=== PATIENT | female | born 1970 | race Caucasian/White ===

== ENCOUNTER 2016-10-28 14:48 | Emergency (ER) | payer BC ==
--- NOTE | 2016-10-28 15:27 | ERNOTE ---
<Sergio Jonas - Last Filed: 10/28/16 20:20> Abdominal HPI - Narrative Date of Service: 10/28/16 - General Chief Complaint: Abdominal Pain Time Seen by Provider: 10/28/16 15:24 Source: patient, family - S.O. Exam Limitations: no limitations - Immun/Allergies/Home Medications Allergies/Adverse Reactions: Allergies No Known Allergies Allergy (Unverified 10/28/16 15:07) Home Medications: HOME MEDICATIONS Ciprofloxacin HCl [Cipro] 500 mg PO BID #20 tab 10/28/16 [Last Taken Unknown] Levothyroxine Sodium [Synthroid] 125 mcg PO DAILY 10/28/16 [Last Taken Unknown] - History of Present Illness Narrative: PT C/O 6 MONTH OF INTERMITTENT ABD PAIN RADIATING TO LEFT SIDE AND HER BACK. SAYS SHE WAS RECENTLY AT [facility] AND DX'D WITH UTI FOR WHICH SHE WAS ON ANTIBIOTIC , DOES NOT KNOW THE NAME SHE STATES THAT THEY DID LAB WORK AND ULTRASOUND OF ABDOMEN AND HAVE FOUND NOTHING. SHE IS FROM [place] AND SEES A N.P. THERE BUT NEVER BEEN HERE BEFORE BUT HER BOYFRIEND LIVES HERE SO THEY DECIDED TOO COME HERE TODAY. SHE IS NOT ON ANY REGULAR MEDS BUT SAYS SHE TOOK IBUPROFEN TODAY AND HER BOYFRIEND GAVE HER ON OF HIS HYDROCODONE TODAY. RIGHT NOW SHE CAN NOT LOCALIZE THE PAIN AND SAYS IT IS NOT TOO BAD IT SEEMS TO "COME AND GO". NO HX OF FEVER, UTI SX. NO V OR D BUT SOMETIMES FEELS NAUSEOUS. SHE DENIES STATING SHE HAD BTL WITH HX OF G 4 P2. NO TRAUMA HX. Timing: intermittent Quality: sharpness Review of Systems - Review of Systems Constitutional: Present: See HPI Gastrointestinal/Abdominal: Present: See HPI, nausea, abdominal pain. Absent: vomiting, diarrhea, constipation, eating less, drinking less Genitourinary: Present: no symptoms reported All Other Systems: All systems neg except as marked - Patient's Past Medical History Patient History - Medical: Hypothyroidism Patient History - Cardiac/Respiratory: No pertinent hx Patient History - Cancer: No Hx of Cancer Patient History - Surgical Procedures: Tubal Ligation, Other Patient History - Other: None - Social History Living Situations: home Psych History: No pertinent hx ED Progress - Date and Time Seen: Date and Time: 10/28/16 18:21 STILL HAVE NOT RECEIVED ANY OF THE RECORDS WE REQUESTED FROM [facility]. RN RE- SSUBMITTED THE REQUEST A FEW MINS. AGO. - Results and Orders Patient's Lab Results:: I have reviewed the patient's lab results. Results and Orders: ALL THE LABS, CBC,CMP,LIPASE CRP , STSH, UA , UDS (EXCEPT FOR OPIATES THEY SAID SHE TOOK) ARE NEGATIVE. - Vital Signs Vital Signs: Vital Signs 10/28/16 10/28/16 15:00 15:13 Temperature 36.7 C Pulse Rate 71 72 Respiratory 12 16 Rate Blood Pressure 117/68 115/76 O2 Sat by Pulse 99 100 Oximetry - Progress/Reassessment Chief Complaint: Abdominal Pain - Transfer of Care Physician Sign Out: Sergio Jonas Receiving Physician: Halie Thao Pending Results: CT/MRI results Expected Disposition: Discharge Plan - Plan Plan: ALL THE LABS AND REVIEW OF W/U DONE IN [facility] HAS BEEN NEGATIVE EXCEPT FOR A UTI FOR WHICH SHE SAYS SHE WAS TREATED. SHE SAYS SHE IS HAVING A RECURRENCE OF ABD PAIN FROM EPIGASTRIC AROUND RIGHT SIDE TO HER BACK BUT ON EXAM THER IS TENDERNESS TO PALPATION. I EXPLAINED THE RESULTS TO DATE TO HERE AND HER BOYFREIND AND OFFERED TO TRY A CT OF ABD /PELVIS TO SEE IF THERE IS ANYTHING MISSED TO DATE. IIN THE MEANTIME I ORDERED TORADOL 30 MG IV THOUGH I CAN NOT REPRODUCE ANY PAIN. Departure - Departure Clinical Impression: Chronic abdominal pain, Pyelonephritis Disposition: Home self-care Condition: Stable Instructions: Pyelonephritis, Adult, [id number] Prescriptions: Ciprofloxacin HCl [Cipro] 500 mg PO BID #20 tab <Halie Thao - Last Filed: 10/28/16 20:57> ED Progress - Vital Signs Vital Signs: Vital Signs 10/28/16 10/28/16 10/28/16 15:00 15:13 15:37 Temperature 36.7 C Pulse Rate 71 72 60 Respiratory 12 16 14 Rate Blood Pressure 117/68 115/76 113/71 O2 Sat by Pulse 99 100 99 Oximetry 10/28/16 10/28/16 10/28/16 16:03 16:38 17:03 Temperature Pulse Rate 59 L 63 58 L Respiratory 12 12 Rate Blood Pressure 107/71 107/70 102/65 O2 Sat by Pulse 99 99 100 Oximetry 10/28/16 10/28/16 10/28/16 17:48 18:37 19:09 Temperature Pulse Rate 61 64 64 Respiratory 12 16 16 Rate Blood Pressure 102/63 104/66 108/60 O2 Sat by Pulse 100 99 98 Oximetry 10/28/16 20:25 Temperature Pulse Rate 63 Respiratory 16 Rate Blood Pressure 109/60 O2 Sat by Pulse 97 Oximetry Plan - Plan Plan: I received sign out from previous physician. pt has had some abd pain, recent dx of UTI, done with ABX however CT reveals findings consistent with pyelonephritis. will treat with Cipro and pt to follow up with PCP
--- OUTSIDE RECORDS SUMMARY | 2016-10-28 15:32 | XMS REPORT | Continuity of Care Document ---
:1970 Author Organization [facility] ([facility]) Address [address] [place] [address] Phone [phone] Care Team Providers Name Role Phone Alicia Kolb Primary Care Provider [phone] Source Comments This disclosure is being made pursuant to the Care Everywhere program, applicable federal and state laws, and may not contain all informaitonavailable regarding this patient.[facility] ([facility]) Active Allergies and Adverse Reactions Not on File Current Medications Not on file Active Problems Not on file Social History Tobacco Use Types Packs/Day Years Used Date Never Assessed Plan of Care Health Maintenance Due Date Last Done Comments Hepatitis B Vaccine (1 of 3 - Primary Series) 1970 Tdap Vaccine 09/28/1983 Lipid Disorder Screening 1990 MMR Vaccine 1990 Td Vaccine 1990 Cervical Cancer Screening 2002 Mammogram 2012 Influenza Vaccine: Seasonal (#1) 01/15/2016 Results from Last 3 Months Not on file
--- OUTSIDE RECORDS SUMMARY | 2016-10-28 15:33 | XMS REPORT | Summary of Care ---
:1970 Author Organization [facility] Address [address] [place] [address] Care Team Providers Name Role Phone Physician, Primary Care Primary Care Physician Unavailable Encounter Date(s): 08/01/16 - 08/01/16 [facility] [address], [place], [place] [address] Discharge Diagnosis: Influenzal acute upper respiratory infection Discharge Disposition: Discharged to Home or Self Care Attending Physician: MONICA Velez Referring Physician: MONICA Velez Vital Signs Most recent to oldest [Reference Range]: 1 Temperature Temporal Artery [36.0-38.0 DegC] 36.4 DegC (08/01/16 9:50 AM) Peripheral Pulse Rate [60-100 bpm] 87 bpm (08/01/16 9:50 AM) SpO2 [90-100 %] 99 % (08/01/16 9:50 AM) Blood Pressure [90-130/60-90 mmHg] 102/68mmHg (08/01/16 9:50 AM) Mean Arterial Pressure, Cuff 79 mmHg (08/01/16 9:50 AM) Most recent to oldest [Reference Range]: 1 Height/Length Measured 169 cm (08/01/16 9:50 AM) Weight Dosing 68.0 kg (08/01/16 9:50 AM) Weight Measured 68.0 kg (08/01/16 9:50 AM) BSA Measured 1.78 m2 (08/01/16 9:50 AM) Body Mass Index Measured 23.81 kg/m2 (08/01/16 9:50 AM) Problem List Condition Effective Dates Status Health Status Informant Graves disease(Confirmed) Active (Confirmed) < 1999 Resolved (Confirmed) < 05/09/01 Resolved (Confirmed) < 07/07/98 Resolved Allergies, Adverse Reactions, Alerts No Known Medication Allergies Medications acyclovir 800 mg oral tablet 1 tab(s), Oral, BID, X 5 days, # 20 tab(s), 2 Refill(s), Start Date: 03/08/15 13 :35:00 CDT, Pharmacy: [facility] Start Date: 03/08/15 Stop Date: 03/08/15 Status: Discontinuedacyclovir 800 mg oral tablet 1 tab(s), Oral, BID, X 5 days, # 20 tab(s), 2 Refill(s), Start Date: 03/08/15 13 :42:05 CDT, Pharmacy: [facility] Start Date: 03/08/15 Stop Date: 03/23/15 Status: Completedamoxicillin 500 mg oral capsule 1 cap(s), Oral, TID, X 10 days, # 30 cap(s), 0 Refill(s), Start Date: 09/23/14 15:09:00 CDT, Pharmacy: [facility] Start Date: 09/23/14 Stop Date: 10/03/14 Status: CompletedAprodine 2.5 mg-60 mg oral tablet 1 tab(s), Oral, QID, PRN for congestion, # 40 tab(s), 0 Refill(s), Start Date: 08/01/16 9:53:00 CREDIT DIRECTOR Start Date: 08/01/16 Status: Orderedazithromycin 500 mg oral tablet 1 tab(s), Oral, Daily, X 5 days, # 5 tab(s), 0 Refill(s), Start Date: 02/26/16 14:56:00 CDT, Pharmacy: [facility] Start Date: 02/26/16 Stop Date: 03/02/16 Status: CompletedFLUoxetine 10 mg oral tablet 1 tab(s), Oral, Daily, # 90 tab(s), 1 Refill(s), Start Date: 02/21/15 17:36:15 CDT, Pharmacy: [facility] Start Date: 02/21/15 Stop Date: 09/08/15 Status: CompletedFLUoxetine 10 mg oral tablet 1 tab(s), Oral, Daily, # 90 tab(s), 1 Refill(s), Start Date: 09/08/15 12:02:28 CDT, Pharmacy: [facility] Start Date: 09/08/15 Stop Date: 04/10/16 Status: CompletedFLUoxetine 10 mg oral tablet 1 tab(s), Oral, Daily, # 90 tab(s), 1 Refill(s), Start Date: 09/08/15 10:40:09 CDT, Pharmacy: [facility] Start Date: 09/08/15 Stop Date: 09/08/15 Status: DiscontinuedFLUoxetine 10 mg oral tablet 1 tab(s), Oral, Daily, # 30 tab(s), 0 Refill(s), Start Date: 02/03/15 8:42:00 CDT, Pharmacy: [facility] Start Date: 02/03/15 Stop Date: 02/21/15 Status: Completedlevothyroxine 125 mcg (0.125 mg) oral tablet 1 tab(s), Oral, Daily, # 90 tab(s), 2 Refill(s), Start Date: 07/03/16 18:15:19 CREDIT DIRECTOR Start Date: 07/03/16 Status: Orderedlevothyroxine 125 mcg (0.125 mg) oral tablet 1 tab(s), Oral, Daily, # 30 tab(s), 3 Refill(s), Start Date: 02/21/16 10:07:00 CDT, Pharmacy: [facility] Start Date: 02/21/16 Stop Date: 07/03/16 Status: Completedminocycline 100 mg oral tablet 1 tab(s), Oral, Daily, # 30 tab(s), 0 Refill(s), Start Date: 08/01/16 9:53:00 CREDIT DIRECTOR Start Date: 08/01/16 Status: OrderedpredniSONE 20 mg oral tablet 2 tab(s), Oral, Daily, X 7 days, # 14 tab(s), 0 Refill(s), Start Date: 09/23/14 15:10:00 CDT, Pharmacy: [facility] Start Date: 09/23/14 Stop Date: 09/30/14 Status: Completedpromethazine-codeine 6.25 mg-10 mg/5 mL oral syrup 5 mL, Oral, q4hr, PRN for cough, X 7 days, # 120 mL, 0 Refill(s), Start Date: 15:12:00 CDT, called to pharmacy (Rx) Start Date: 09/23/14 Stop Date: 09/30/14 Status: CompletedSynthroid 112 mcg (0.112 mg) oral tablet 1 tab(s), Oral, Daily, Use generic, # 90 tab(s), 3 Refill(s), Start Date: 18:20:07 CREDIT DIRECTOR, Pharmacy: [facility] Special Instructions: Use generic Start Date: 07/01/14 Stop Date: 07/04/14 Status: CompletedSynthroid 112 mcg (0.112 mg) oral tablet 1 tab(s), Oral, Daily, Use generic, # 90 tab(s), 3 Refill(s), Start Date: 10:44:55 CREDIT DIRECTOR, Pharmacy: [facility] Special Instructions: Use generic Start Date: 07/04/14 Stop Date: 07/18/14 Status: CompletedSynthroid 112 mcg (0.112 mg) oral tablet 1 tab(s), Oral, Daily, Use generic, # 90 tab(s), 3 Refill(s), Start Date: 12:10:56 CREDIT DIRECTOR, Pharmacy: [facility] Special Instructions: Use generic Start Date: 07/18/14 Stop Date: 07/05/15 Status: CompletedSynthroid 112 mcg (0.112 mg) oral tablet 1 tab(s), Oral, Daily, # 90 tab(s), 1 Refill(s), Start Date: 02/24/14 10:54:00 CDT, Pharmacy: [facility] Start Date: 02/24/14 Stop Date: 07/01/14 Status: CompletedSynthroid 112 mcg (0.112 mg) oral tablet 1 tab(s), Oral, Daily, Use generic, # 90 tab(s), 3 Refill(s), Start Date: 12:51:39 CREDIT DIRECTOR, Pharmacy: [facility] Special Instructions: Use generic Start Date: 07/05/15 Stop Date: 02/21/16 Status: DiscontinuedTamiflu 75 mg oral capsule 1 cap(s), Oral, BID, X 5 days, # 10 cap(s), 0 Refill(s), Start Date: 08/01/16 10 :10:00 CREDIT DIRECTOR, Pharmacy: [facility] Start Date: 08/01/16 Stop Date: 08/06/16 Status: Ordered Results No data available for this section Immunizations No data available for this section Procedures Procedure Date Related Diagnosis Body Site PAP smear preparation 08/03/10 Ablation1 2003 D&C - Dilatation and curettage 2003 TL - Tubal ligation 2000 Thyroidectomy 1993 Extraction of wisdom tooth 1989 1Uterine Cryoablation Social History No data available for this section Assessment and Plan No data available for this section
[2016-10-28 15:46] LABS: Hematocrit 34.6 % (37.0-47.0); Hemoglobin 11.7 gm/dL (12.5-16.0); Mean Cell Volume 93.5 fl (78-100); Mean Corpuscular Hemoglobin 31.6 pg (27-31); Mean Corpuscular Hgb Conc 33.8 g/dl (32-36); Mean Platelet Volume 9.7 fl (6.0-9.5); Neutrophil # 5.3 K/mm3 (1.3-6.0); Neutrophil % 50.4 % (42-75.0); Platelet Count 268 K/mm3 (150-450); White Blood Count 10.5 K/mm3 (4.0-10.5)
[2016-10-28 15:47] LABS: Urine Bilirubin Negative (NEGATIVE); Urine Ketone Negative (NEGATIVE); Urine Nitrite Negative (NEGATIVE); Urine Protein 15 mg/dL (NEGATIVE); Urine Urobilinogen Normal (NORMAL)
[2016-10-28 15:55] LABS: Urine Blood 10 /ul (NEGATIVE)
[2016-10-28 15:56] LABS: Urine Appearance Clear; Urine Bacteria None Seen; Urine Color Yellow; Urine RBC TRACE /hpf (0-5); Urine WBC None Seen /hpf (0-5)
[2016-10-28 16:07] LABS: Albumin * 3.5 gm/dl (3.4-5.0); Anion Gap 13.7 mmol/L (6.8-13.8); Bilirubin, Total 0.2 mg/dL (0.0-1.1); CRP 0.5 mg/dL (0.0-0.9); Ca. Corrected For Albumin 8.5 mg/dL (8.4-10.2); Calcium * 8.4 mg/dL (7.9-10.9); Potassium 3.7 mmol/L (3.4-4.6); TSH * 2.244 uIU/mL (0.358-3.74); Total Protein 7.3 gm/dL (6.2-8.2)
[2016-10-28 16:23] LABS: Cocaine Ur Negative (NEGATIVE); Urine Barbiturate Negative (NEGATIVE); Urine Benzodiazepines Negative (NEGATIVE); Urine PCP Negative (NEGATIVE); Urine THC Negative (NEGATIVE)
[2016-10-28 16:24] LABS: Urine Opiates Positive (NEGATIVE)
[2016-10-28] MEDS ORDERED: KETOROLAC TROMETHAMINE 30 MG/ML VIAL IV ONE (19:24)
[2016-10-28] MEDS: DIATRIZOATE MEGLU/DIATRIZO SOD 30 ML BTL PO ONE ×2 (19:35→19:42)
[2016-10-28] MEDS ORDERED: DIATRIZOATE MEGLU/DIATRIZO SOD 30 ML BTL ONE (19:36)
[2016-10-28] MEDS ORDERED: KETOROLAC TROMETHAMINE 30 MG/ML VIAL ONE (19:36)
[2016-10-28 20:25] VITALS: BP 109/60
[2016-10-28] MEDS ORDERED: CIPROFLOXACIN HCL 250 MG TABLET PO ONE (20:57)
[2016-10-28] MEDS ORDERED: CIPROFLOXACIN HCL 250 MG TABLET ONE (20:59)
== END 2016-10-28 21:00 | disposition home or self-care (01) ==
LOC: ER 14:48
DX: N12 Tubulo-interstitial nephritis, not specified as acute or chronic (principal); E03.9 Hypothyroidism, unspecified